=== PATIENT | male | born 1970 | race Caucasian/White ===

== ENCOUNTER 2024-11-05 11:54 | Emergency (ER) | payer MEDICARE, SELFPAY ==
[2024-11-05 11:55] VITALS: BP 134/76; PULSE 104; RESP 20; TEMP 36.3; O2SAT 100
--- NOTE | 2024-11-05 12:56 | EX.ED.DYSGE1 ---
HPI History of Present Illness Chief Complaint: Headache PFSH PFSH Medical History Major depressive disorder, recurrent Contusion of left foot Colonoscopy planned Closed displaced fracture of phalanx of right ring finger Vitamin deficiency Vision problems Kidney stone High cholesterol Headache Hx of emotional problems Diabetes mellitus Bone fracture Allergies Home Medications ?Medication ?Instructions ?Recorded ?Last Taken ?Type atorvastatin 10 mg tablet 10 mg PO DAILY 08/22/22 Unknown History lisinopril 2.5 mg tablet 2.5 mg PO DAILY 08/22/22 Unknown History metformin 500 mg tablet,extended 500 mg PO .qid 08/22/22 Unknown History release 24 hr semaglutide 7 mg tablet (Rybelsus) 7 mg PO DAILY 05/12/23 Unknown History multivitamin 1 tab PO QDAY 02/14/24 Unknown History aripiprazole 5 mg tablet 5 mg PO DAILY #90 tabs 08/19/24 Unknown Rx empagliflozin 25 mg tablet 25 mg PO QAM 08/19/24 Unknown History (Jardiance) venlafaxine 75 mg capsule,extended 75 mg PO DAILY #90 caps 08/19/24 Unknown Rx release 24 hr Allergy/AdvReac Type Severity Reaction Status Date / Time No Known Allergies Allergy Verified 08/19/24 13:02 Surgical History Hx of neck surgery Social History (Updated 11/05/24 @ 12:22 by Shadia De Santiago) housing: house Smoking Status: Never smoker alcohol intake: never substance use type: does not use what type of physical activity do you participate in: walking duration: other details: very infrequent EXAM Physical Exam Const Vital Signs: 11/05/24 11:55 11/05/24 14:00 Temperature 97.3 F L Temperature Source Temporal Pulse Rate 104 H 78 Respiratory Rate 20 H Blood Pressure 134/76 H 112/80 Blood Pressure Mean 95 90 Pulse Ox 100 100 Oxygen Delivery Method Room Air MDM MDM MDM Narrative Medical decision making narrative: HISTORY OF PRESENT ILLNESS: Chief complaint: Headache 54-year-old male history of type 2 diabetes, hypertension, hyperlipidemia, depression anxiety presents with concern for it feels like my head is floating. He notes this began this morning when he woke up. Denies any visual changes. He further states no falls or trauma noted. No neck symptoms or fever noted. No vomiting or nausea. No palpitations, chest pain or shortness of breath notes transient visual disturbances earlier this morning but that is since resolved. No seizure-like activity or syncope. Patient denies sudden onset or thunderclap headache, denies maximal intensity within 1 minute. REVIEW OF SYSTEMS: Pertinent positives: Headache Pertinent negatives: As per HPI PHYSICAL EXAM: Nursing triage notes reviewed, Vital signs reviewed Constitutional: please see [facility] HENT: MMM, visual acuity grossly intact, visual stinson intact, extraocular muscles intact, conjunctiva not injected. Eyes: Pupils equal round and reactive to light, Extraocular muscles intact Neck: No stridor, no JVD, full neck ROM Lungs: Clear to auscultation, No wheezing or rales. No increased work of breathing, no conversational dyspnea, no accessory muscle use, no nasal flaring. No respiratory distress noted Heart: Regular rate and rhythm, No murmurs, No rubs and No gallops, 2+ distal pulses (radial, femoral, posterior tibial) in all extremities Abdomen: Soft, there is no tenderness, rigidity, rebound or guarding, no obvious peritoneal signs, no palpable pulsatile abdominal masses, no auscultated abdominal bruit : No CVAT Extremities: No edema Neuro: Alert and oriented x3, neuro exam at baseline, cranial nerves II through XII are intact. No pain with extraocular muscle movement. There is negative test of skew. 5 of 5 strength in upper and lower extremities in flexion extension. Intact sensation to light touch in upper and lower extremity dermatomes. No truncal or extremity ataxia. No dysdiadochokinesia. Normal gait. 2+ reflexes in upper and lower extremities. No meningeal signs. Negative Babinski. NIH of 0. Skin: No rash or lesions noted MEDICAL DECISION MAKING: Chief Complaint: please see HPI External records reviewed: Reviewed prior psychiatric notes Factors affecting care: As per [facility] Social determinants of health: History mental health disorder History obtained from others: none Consults: none [facility] Narrative: Patient was initially hemodynamically stable, afebrile and nontoxic-appearing. Initial exam without focal neurologic deficits. No meningeal signs. Patient is nontoxic-appearing. I considered the following differential diagnosis: ICH, intracranial mass, perceptual disturbances I obtained CT scan of the brain to further determine if the patient was suffering from a life-threatening etiology. Treated with IV Reglan and fluids ALL IMAGES (IF OBTAINED) HAVE BEEN PERSONALLY REVIEWED AND INTERPRETED BY MYSELF. CT scan of the brain showed no acute intracranial provide explain the patient's symptoms Repeat neurologic status remained benign. Repeat vital signs showed improvement in tachycardia. No clear etiology to explain the patient's symptoms. The patient is appropriate for discharge home with close outpatient follow-up. The patient and/or family, caregivers express understanding. The patient and/or family, caregivers agrees with the plan. Shared decision making: I will have a discussion with the patient and or visitors regarding risk/benefits of further testing or admission. They will be made aware of of the risk/benefits inherent in this decision they will be given the opportunity to voice understanding. Total critical care time today provided was at least 0 minutes. This excludes separately billable procedures. Critical care time (if documented) is secondary to the patient having high probability of clinically significant/life threatening deterioration in the patient's condition which required my urgent intervention. Impression: 1. Headache 2. Lightheadedness Dispo: Discharge home This note was generated with FRAMED dictation software. It may contain incorrect words, spelling, and punctuation that were not noted in review of the chart prior to signing. Radiography Diagnostic Testing: Clinical Impression(s) from Imaging Studies Brain CT 11/05/24 13:05 IMPRESSION: Mild degree of cerebral atrophy. No acute abnormality is seen. Reading Location: [id number] Discharge Plan Triage Chief Complaint: Headache ED Provider: Nemesio Banks Dx/Rx/DC Orders Instructions: ED Headache Unspecified Prescriptions: No Action lisinopril 2.5 mg tablet 2.5 mg PO DAILY Patient Comments: TAKE ONE TABLET BY MOUTH EVERY DAY atorvastatin 10 mg tablet 10 mg PO DAILY Patient Comments: TAKE ONE TABLET BY MOUTH EVERY DAY metformin 500 mg tablet extended release 24 hr 500 mg PO .qid Patient Comments: TAKE 4 TABLETS BY MOUTH ONCE DAILY Rybelsus 7 mg tablet 7 mg PO DAILY multivitamin Tablet 1 tab PO QDAY Jardiance 25 mg tablet 25 mg PO QAM aripiprazole 5 mg tablet 5 mg PO DAILY Qty: 90 1RF venlafaxine 75 mg capsule,extended release 24hr 75 mg PO DAILY Qty: 90 1RF Primary Care Provider: Oni Hi NP Referrals: Nav Verdugo DO [Med Staff - Web Press Operator Apprentice] - Oni Hi NP, [facility] [Primary Care Provider] - Activity Restrictions/Additional Instructions: Thank you for trusting us with your care today! Your imaging studies were reassuring. Please take Tylenol (2 pills, 650 mg), ibuprofen (2 pills, 400 mg) every 6 hours as needed for pain and fever control. Please return to the emergency department if your symptoms change or worsen. Please follow with your primary care physician for further outpatient evaluation and management. Print Language: Russian Disposition Disposition: Home, Self Care
--- NOTE | 2024-11-05 13:05 | CT_ITS ---
PROCEDURE: BRAIN/HEAD WITHOUT CONTRAST 11/05/2024 REASON FOR EXAM: HEADACHE TECHNIQUE: BRAIN/HEAD WITHOUT CONTRAST Coronal and Sagittal reconstruction series were provided. One or more dose reduction techniques were used (e.g., Automated exposure control, adjustment of the mA and/or kV according to patient size, use of iterative reconstruction technique. RADIATION DOSE SUMMARY: CTDlvol: 47.06 mGy DLP: 907.97 mGycm COMPARISON: None FINDINGS: Brain: Within normal limits for age CSF Spaces: Mild generalized cerebral atrophy prominence of the cisterna magna. This is a normal variant. Sinuses/Mastoids: Clear at visualized levels Bones: Unremarkable CT/Brain/Head without Contrast IMPRESSION: Mild degree of cerebral atrophy. No acute abnormality is seen. Reading Location: [id number]
[2024-11-05] MEDS: 0.9% Normal Saline (500mL Bag) 500 ML 999 ML IV (13:13)
[2024-11-05 14:00] VITALS: BP 112/80; PULSE 78; O2SAT 100
[2024-11-05 14:16] VITALS: BP 112/80; PULSE 78; RESP 18; TEMP 35.7; O2SAT 100
== END 2024-11-05 14:24 | disposition home or self-care (01) ==
PROVIDERS: Emergency Provider Emergency Medicine; PCP Nurse Practitioner Primary Care; Visit Provider Emergency Medicine
DX: R51.9 Headache, unspecified (principal); E11.9 Type 2 diabetes mellitus without complications; R42 Dizziness and giddiness; E78.00 Pure hypercholesterolemia, unspecified; I10 Essential (primary) hypertension; Z79.899 Other long term (current) drug therapy; Z79.84 Long term (current) use of oral hypoglycemic drugs; F41.8 Other specified anxiety disorders
CPT/HCPCS: 70450; 96361; 96374; 99282; A4216